=== PATIENT | male | born 1985 | race Caucasian/White ===

== ENCOUNTER 2017-05-26 07:13 | Emergency (ER) | payer SELFPAY ==
[~2017-05-26] VITALS: Ht 177.8 cm; Wt 64.0 kg
[2017-05-26 07:14] VITALS: BP 123/78
[2017-05-26] MEDS ORDERED: LORazepam 1MG TABLET ONE (08:44)
[2017-05-26] MEDS ORDERED: LORazepam 1MG TABLET PO ONE (09:00)
== END 2017-05-26 09:04 | disposition home or self-care (01) ==
LOC: ED 08:54
DX: F41.1 Generalized anxiety disorder (principal)
CPT/HCPCS: 99283